=== PATIENT | male | born 1995 | race Caucasian/White ===

== ENCOUNTER 2018-04-24 15:13 | Day surgery (SDC) | payer BC ==
[2018-04-22 13:43] VITALS: BMI 25.8
[2018-04-24] MEDS ORDERED: BUPIVACAINE HCL/PF 2.5 MG/ML - 30 ML VIAL IJ ONE (17:08)
[2018-04-24] MEDS ORDERED: LIDOCAINE HCL 2% (20ML MULTI-DOSE VIAL) NR ONE (17:09)
[2018-04-24] MEDS ORDERED: oxyCODONE HCL 5 MG TABLET PO PRN ×2 (17:30)
[2018-04-24] MEDS ORDERED: PROMETHAZINE HCL 25 MG/1 ML VIAL IVPUSH PRN (17:30)
[2018-04-24] MEDS ORDERED: ONDANSETRON 4 MG/2 ML VIAL IVPUSH PRN (17:30)
[2018-04-24] MEDS ORDERED: oxyCODONE HCL 5 MG TABLET ONE (18:41)
[2018-04-24 19:03] VITALS: TEMP 98
[2018-04-24 20:00] VITALS: BP 128/76; PULSE 64
--- NOTE | 2018-04-25 18:35 | OP ---
DATE OF OPERATION: 04/24/2018 PREOPERATIVE DIAGNOSIS: Right fourth and fifth metacarpal fractures with carpometacarpal subluxation. POSTOPERATIVE DIAGNOSIS: Right fourth and fifth metacarpal fractures with carpometacarpal subluxation. OPERATIVE PROCEDURE: Closed reduction of percutaneous pinning of right fourth and fifth carpometacarpal fractures as well as carpometacarpal dislocation. SURGEON: Hayder Garcia MD COMMERCIAL REPRESENTATIVE: AISHWARYA Hurtado ANESTHESIA: General. COMPLICATIONS: None. ESTIMATED BLOOD LOSS: Minimal. INDICATIONS FOR PROCEDURE: The patient is a 23-year-old male with the above finding indicated for operative treatment. Risks, benefits, alternatives were discussed with patient in length. Proper informed consent was obtained. PROCEDURE: After proper identification of patient and correct operative site, patient was brought to the operating room and placed supine on the operating room table. Prominence were well padded. The right upper extremity was prepped and draped in the usual sterile fashion with a well-padded tourniquet placed over the sterile prep. Under live fluoroscopy, reduction maneuver was performed which allowed satisfactory reduction of the CMC joints as well as the metacarpal fractures. Two K-wires were then placed across the fifth to the fourth to the third metacarpals percutaneously. This provided secure, stable, fixation of the fractures as well as the joints. Pins were cut short and bent outside of the skin. Sterile dressings were applied. Splint was placed. Patient was reversed from anesthesia and brought to recovery in stable condition. Matty Matos was interval throughout the procedure. Procedure could not be performed without skilled operative cable splicer assistant. HAYDER GARCIA M.D. [id number]
== END 2018-04-24 20:01 | disposition home or self-care (01) ==
LOC: FASU 15:13
PROVIDERS: ATTEND Orthopaedic Surgery Hand Surgery
PROC: 0PSP34Z Reposition Right Metacarpal with Internal Fixation Device, Percutaneous Approach (ICD-10-PCS; 2018-04-24)
PROC: 0PSP34Z Reposition Right Metacarpal with Internal Fixation Device, Percutaneous Approach (ICD-10-PCS; principal; 2018-04-24 17:15)
DX: S62.314A Displaced fracture of base of fourth metacarpal bone, right hand, initial encounter for closed fracture (principal); S62.324A Displaced fracture of shaft of fourth metacarpal bone, right hand, initial encounter for closed fracture; S62.326A Displaced fracture of shaft of fifth metacarpal bone, right hand, initial encounter for closed fracture; X58.XXXA Exposure to other specified factors, initial encounter; Y93.9 Activity, unspecified; Y92.9 Unspecified place or not applicable
CPT/HCPCS: 73140-TC-RT-FY